=== PATIENT | male | born 1965 | race Caucasian/White ===

== ENCOUNTER 2019-07-09 21:53 | Emergency (ER) | payer OTHER ==
[~2019-07-09] VITALS: Ht 170.2 cm; Wt 95.3 kg
[2019-07-09 21:59] VITALS: BP 126/85
--- NOTE | 2019-07-09 22:06 | NUR ---
PT TAKEN TO BED 11
--- NOTE | 2019-07-09 22:12 | NUR ---
PT AMBULATED TO RESTROOM WITH STEADY GAIT.
--- NOTE | 2019-07-09 22:12 | NUR ---
54M PT STATES CHEST PAIN BEGAN X 1 WEEK AGO. PT STATES PAIN WAS NOT STRONG BUT HE FELT 7/10 PAIN TODAY. PT STATES PAIN COMES WITH REST AND ALSO UPON EXERTION. PT STATES PT TAKES ASA 81MG PO DAILY. VSS. PMHX: DENIES RX: ASA 81MG ALLX: DENIES NEGATIVE COVID SCREEN.
--- NOTE | 2019-07-09 22:22 | NUR ---
XR AT BEDSIDE.
[2019-07-09] MEDS: ASPIRIN 325 MG TAB PO ONE (22:27)
--- NOTE | 2019-07-09 22:27 | NUR ---
pt medicated with aspirin po . tolerated well.
--- NOTE | 2019-07-09 22:34 | NUR ---
lab at bedside.
[2019-07-09 22:43] LABS: BASOPHILS # (AUTO) 0.1 K/uL (0.00-0.22); EOSINOPHILS # (AUTO) 0.2 K/uL (0-0.4); EOSINOPHILS % (AUTO) 2.9 % (0.0-4.0); HEMATOCRIT 44.2 % (36-52); LYMPHOCYTES # (AUTO) 2.7 K/uL (2.0-11.5); LYMPHOCYTES % (AUTO) 34.3 % (20.5-51.1); MEAN CORPUSCULAR HEMOGLOBIN 31 pg (27-31); MEAN CORPUSCULAR HGB CONC 34 g/dL (33-37); MEAN CORPUSCULAR VOLUME 91.7 fL (80-94); MONOCYTES # (AUTO) 0.6 K/uL (0.8-1.0); MONOCYTES % (AUTO) 7.8 % (1.7-9.3); NEUTROPHILS # (AUTO) 4.3 K/uL (1.8-7.7); PLATELET COUNT (AUTO) 204 K/uL (140-450); RED BLOOD CELL COUNT(AUTO) 4.82 MIL/uL (4.20-6.10); RED CELL DISTRIBUTION WIDTH 12.7 % (11.6-13.7)
[2019-07-09 22:57] LABS: ALBUMIN 3.7 g/dL (3.4-5.0); ANION GAP 10.4 (8-16); CARBON DIOXIDE 28.6 mmol/L (21-32); CHOL/HDL RATIO 4.6 (1-4.5); CREATININE 1.1 mg/dL (0.6-1.3); TOTAL BILIRUBIN 0.5 mg/dL (0.0-1.0)
--- NOTE | 2019-07-09 22:58 | NUR ---
PT IN BED RESTING COMFORTABLY. AROUSABLE TO VOICE. NO FURTHER NEEDS AT THIS TIME. VSS. BED LOWEST AND LOCKED, RAILS X2.
[2019-07-09 23:10] LABS: CREATINE KINASE MB 1.4 ng/mL (0-3.6)
--- NOTE | 2019-07-10 00:35 | NUR ---
PT NOTIFIED THAT FAMILY MEMBERS ARE WAITING OUTSIDE IN THE PARKING LOT WHEN HE IS D/C. PT IN BED RESTING, VISIBLE CHEST RISE AND FALL. AROUSABLE TO VOICE. NO FURTHER NEEDS AT THIS TIME. BED LOWEST, LOCKED, RAILS X 2.
--- NOTE | 2019-07-10 00:48 | NUR ---
Dr. Rodriguez examining patient.
[2019-07-10 01:38] VITALS: BP 130/75
--- NOTE | 2019-07-10 01:38 | NUR ---
Patient discharged with v/s stable. Written and verbal after care instructions given and explained. Patient verbalized understanding. Ambulatory with steady gait. All questions addressed prior to discharge. Advised to follow up with PMD.
== END 2019-07-10 01:38 | disposition home or self-care (01) ==
LOC: MED 21:53
DX: R07.89 Other chest pain (principal); R61 Generalized hyperhidrosis
CPT/HCPCS: 36415; 71045; 80053; 80061; 82550; 82553; 83690; 84484; 85025; 93005; 99285; Q0092